=== PATIENT | female | born 1990 | race Caucasian/White ===

== ENCOUNTER 2016-11-25 11:53 | Emergency (ER) | payer OTHER ==
[~2016-11-25] VITALS: Ht 160 cm; Wt 99.8 kg
[~2016-11-25 11:53] MED LIST: PREN1TAB49 PO
[2016-11-25 11:59] VITALS: BP_SYST 132
--- NOTE | 2016-11-25 11:59 | NUR ---
Patient to ER bed 07 to gown for evaluation. Side rails up.
--- NOTE | 2016-11-25 12:05 | NUR ---
ER at bedside examining patient.
--- NOTE | 2016-11-25 12:10 | NUR ---
Patient presents to the emergency department after having a witnessed syncopal episode at work that happened at approx 1115 today. Patient states she was feeling dizzy prior to the syncopal episode but denies dizziness at this time. states 4/10 neck pain and 7/10 headache, states co workers just saw her hit her head lightly on the mat when she fell. no hematoma noted or palpated. (-) n/v/d. will continue to monitor
[2016-11-25 12:32] LABS: BASOPHILS % (AUTO) 0.7 % (0.0-2.0); EOSINOPHILS # (AUTO) 0.1 K/uL (0.0-0.4); EOSINOPHILS % (AUTO) 2.1 % (0.0-4.0); HEMATOCRIT 33.8 % (36-48); HEMOGLOBIN 10.9 g/dL (12.0-16.0); LYMPHOCYTES # (AUTO) 1.7 K/uL (1.0-5.5); LYMPHOCYTES % (AUTO) 24.9 % (20.5-51.5); MEAN CORPUSCULAR HEMOGLOBIN 23 pg (27-31); MEAN CORPUSCULAR HGB CONC 32 % (32-36); MEAN CORPUSCULAR VOLUME 71 fL (79.0-98.0); MONOCYTES # (AUTO) 0.3 K/uL (0.0-1.0); NEUTROPHILS # (AUTO) 4.7 K/uL (1.8-7.7); NEUTROPHILS % (AUTO) 67.3 % (40.0-70.0); PLATELET COUNT (AUTO) 344 K/uL (130-430); RED BLOOD CELL COUNT(AUTO) 4.74 MIL/uL (4.2-6.2); RED CELL DISTRIBUTION WIDTH 17.1 % (9.0-15.0); WHITE BLOOD COUNT (AUTO) 6.8 K/uL (4.8-10.8)
[2016-11-25 12:37] LABS: BILIRUBIN,URINE NEGATIVE (NEGATIVE); BLOOD, URINE NEGATIVE (NEGATIVE); CLARITY/URINE CLEAR (CLEAR); COLOR,URINE YELLOW (YELLOW); GLUCOSE,URINE NEGATIVE (NEGATIVE); KETONES,URINE NEGATIVE (NEGATIVE); LEUKOCYTE ESTERASE ,URINE 1+ (NEGATIVE); NITRITE, URINE NEGATIVE (NEGATIVE); PH,URINE 6.5 (5.0-8.0); PROTEIN URINE NEGATIVE (NEGATIVE)
[2016-11-25 12:41] LABS: CALCIUM 8.7 mg/dL (8.4-11.0); CREATININE 0.73 mg/dL (0.55-1.30); POTASSIUM 3.8 mmol/L (3.5-5.1)
[2016-11-25 12:45] LABS: BACTERIA,URINE FEW /HPF (None Seen); MUCUS,URINE 1+ /LPF (None Seen); RBC,URINE 0-3 /HPF (0-3)
[2016-11-25 12:47] LABS: ALBUMIN 3.5 g/dL (3.4-4.8); TOTAL BILIRUBIN 0.4 mg/dL (0.0-1.0); TOTAL PROTEIN, SERUM 7.5 g/dL (6.4-8.3)
--- NOTE | 2016-11-25 12:56 | NUR ---
Pt off the unit for X-ray
--- NOTE | 2016-11-25 13:14 | NUR ---
Patient returned from xray, stable condition.
[2016-11-25] MEDS ORDERED: MECLIZINE HCL 25 MG TABLET (ANITVERT) PO ONE (13:30)
--- NOTE | 2016-11-25 13:38 | NUR ---
Patient instructed not to drive until further evaluated by primary doctor (within 2 days) and given the okay/denial to do so. Patient verbalized understanding.
--- NOTE | 2016-11-25 13:38 | NUR ---
Note undone in EDM - 11/25/16 at 1340 by [email or web address] Patient given written and verbal discharge instructions and verbalizes understanding. ER discussed with patient the results and treatment provided. Patient in stable condition. ID arm band removed. Rx of Meclizine and Macrobid given. Patient educated on pain management and to follow up with PMD within 2 days. Pain Scale 0/10. Opportunity for questions provided and answered.
[2016-11-25 13:39] VITALS: BP_SYST 125
--- NOTE | 2016-11-25 13:39 | NUR ---
Patient given written and verbal discharge instructions and verbalizes understanding. ER MD discussed with patient the results and treatment provided. Patient in stable condition. ID arm band removed. Rx of Meclizine and Macrobid given. Patient educated on pain management and to follow up with PMD within 2 days. Pain Scale 0/10. Opportunity for questions provided and answered.
== END 2016-11-25 13:39 | disposition home or self-care (01) ==
LOC: SED 11:53
DX: N39.0 Urinary tract infection, site not specified (principal); R55 Syncope and collapse; R42 Dizziness and giddiness; M54.2 Cervicalgia
CPT/HCPCS: 36415; 72050; 80053; 81000; 81025; 84484; 85025; 87086; 93005; 99285; J8597

== ENCOUNTER 2017-12-28 20:24 | Emergency (ER) | payer OTHER ==
[~2017-12-28] VITALS: Ht 160 cm; Wt 95.3 kg
[2017-12-28 20:29] VITALS: BP_SYST 124
[2017-12-28 21:32] VITALS: BP_SYST 124
== END 2017-12-28 21:32 | disposition home or self-care (01) ==
LOC: SED 20:24
DX: J02.9 Acute pharyngitis, unspecified (principal)
CPT/HCPCS: 36415; 86403; 87081; 99284

== ENCOUNTER 2018-02-05 23:13 | Emergency (ER) | payer OTHER ==
[~2018-02-05] VITALS: Ht 160 cm; Wt 99.8 kg
[2018-02-05 23:22] VITALS: BP_SYST 118
--- NOTE | 2018-02-06 00:33 | NUR ---
Patient to ER bed 7 to gown for evaluation. Side rails up. Report given to HIRO NATHAN.
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
--- NOTE | 2018-02-06 00:46 | NUR ---
ER at bedside examining patient.
[2018-02-06 01:23] VITALS: BP_SYST 120
--- NOTE | 2018-02-06 01:23 | NUR ---
Patient given written and verbal discharge instructions and verbalizes understanding. ER MD Barry discussed with patient the results and treatment provided. Patient in stable condition. ID arm band removed. Patient educated on pain management and to follow up with PMD. Pain Scale 0/10. Opportunity for questions provided and answered.
== END 2018-02-06 01:23 | disposition home or self-care (01) ==
LOC: SED 23:13
DX: S20.211A Contusion of right front wall of thorax, initial encounter (principal); V89.2XXA Person injured in unspecified motor-vehicle accident, traffic, initial encounter; Y93.89 Activity, other specified; Y92.481 Parking lot as the place of occurrence of the external cause; Y99.8 Other external cause status
CPT/HCPCS: 71100; 81025; 99284